=== PATIENT | male | born 1925 | race Caucasian/White ===

== ENCOUNTER 2017-03-27 09:58 | Emergency (ER) | payer MEDICARE, OTHER ==
[~2017-03-27] VITALS: Ht 170.2 cm; Wt 62.8 kg
[2017-03-27 10:07] VITALS: BP 125/79
[2017-03-27] MEDS ORDERED: DILTIAZE PO (10:31)
[2017-03-27] MEDS ORDERED: [UNRECOGNIZED DRUG - OTHER] PO (10:33)
[2017-03-27] MEDS ORDERED: CENTRUM PO (10:33)
[2017-03-27] MEDS ORDERED: CALCIUM + D PO (10:34)
[2017-03-27 10:46] LABS: HEMATOCRIT 41.5 % (39.0-50.0); HEMOGLOBIN 14.1 g/dl (14.0-18.0); IMMATURE GRANULOCYTES 0.4 % (0.0-1.0); MEAN CELL VOLUME 100.5 fL CALC (80.0-100.0); MEAN CORPUSCULAR HGB 34.1 pG CALC (26.0-32.0); NEUT# 2.95 thou/uL (1.82-7.42); RED BLOOD COUNT 4.13 mill/uL (4.70-6.10)
[2017-03-27 10:59] LABS: ANION GAP 13 (6-22 (CALC)); BUN 17 mg/dL (8-23); BUN/CREATININE RATIO 17 (12-20 (CALC)); CALCIUM 9.4 mg/dL (8.4-10.2); CARBON DIOXIDE 27 mmol/l (22-30); CHLORIDE 106 mmol/l (95-108); GFR > 60 ML/MIN (>=60 (CALC)); GFR FOR AFR.AMER. > 60 ML/MIN (>=60 (CALC)); GLUCOSE 93 mg/dL (82-115); POTASSIUM 4.6 mmol/l (3.5-5.1); SODIUM 142 mmol/l (137-146)
== END 2017-03-27 12:56 | disposition home or self-care (01) ==
LOC: ED 09:58
PROVIDERS: Family Medicine
DX: K59.00 Constipation, unspecified (principal); Z95.0 Presence of cardiac pacemaker